=== PATIENT | male | born 1950 | race Caucasian/White ===

== ENCOUNTER 2017-05-29 15:14 | Emergency (ER) | payer MEDICARE, OTHER ==
[~2017-05-29] VITALS: Ht 188 cm; Wt 105.0 kg
[2017-05-29 15:16] VITALS: BP 137/83; PULSE 66; RESP 16; TEMP 98.6; O2SAT 97
[2017-05-29] MEDS ORDERED: TETANUS/DIPHTHERIA TOXOID ADULT 0.5 ML VIAL IM ONE (15:30)
--- NOTE | 2017-05-29 15:30 | PD ---
HPI Chief Complaint: Laceration/Skin Injury Time Seen by Provider: 15:25 Travel History International Travel<30 days: No Contact w/Intl Traveler<30days: No Traveled to known affect area: No History of Present Illness HPI 67-year-old male presents for evaluation a laceration to the dorsal aspect of his left foot. Patient was smashing tile when a piece flew on his foot. Sustained laceration. Patient states he was unable to stop it from bleeding so he came to the emergency department. He is not up-to-date on his tetanus vaccination. Reports mild pain at the site. It does not radiate anywhere. Denies any limitations range of motion alterations in sensation. He has no other symptoms to report. [facility] Past Medical History Medical History: Denies Significant Hx Social History Alcohol Use: No Tobacco Use: No Substance Use: No Allergies-Medications (Allergen,Severity, Reaction): Uncoded Allergies: ORAL CORTISONE (Allergy, Severe, RASH, 05/29/17) Review of Systems Except as stated in HPI: all other systems reviewed are Neg Physical Exam Narrative GENERAL: Well nourished male pt in no acute distress SKIN: Warm and dry.2.5 cm laceration to the dorsum of the proximal left foot. Bleeding moderately. HEAD: Normocephalic. EYES: No scleral icterus. No injection or drainage. NECK: Supple, trachea midline. No JVD or lymphadenopathy. CARDIOVASCULAR: Regular rate and rhythm without murmurs, gallops, or rubs. RESPIRATORY: Breath sounds equal bilaterally. No accessory muscle use. MUSCULOSKELETAL: No cyanosis, or edema. Pt has full flexion and extension of the L ankle and toes in the affected extremity. Cap refill WNL: Data Data Last Documented VS Vital Signs Date Time Temp Pulse Resp B/P (MAP) Pulse Ox O2 Delivery O2 Flow Rate FiO2 05/29/17 16:11 05/29/17 15:16 98.6 66 16 97 Room Air Orders Orders Foot, Limited (2vws) (05/29/17 ) Tetanus/Diphtheria Tox Adult (Tetanus/Di (05/29/17 15:30) MDM Medical Decision Making Medical Screen Exam Complete: Yes Emergency Medical Condition: Yes Medical Record Reviewed: Yes Differential Diagnosis laceration superficial vs deep vs abrasion vs avulsion Narrative Course 67-year-old male presents to the emergency department for evaluation to have a laceration to the dorsum of the left foot. Wound is cleansed and approximated without difficulty. The extremity remains neurovascularly intact. X-rays without acute bony normality. Patient is counseled on care and discharged home at this time. Procedures Procedure Narrative LACERATION LOCATION: Left foot LENGTH: 2.5 cm] NUMBER OF STITCHES/DAVID: 3 sutures REPAIR: The area of the laceration was prepped with Betadine and sterilely draped. The laceration was infiltrated with 1% lidocaine without epinephrine. The wound was copiously irrigated and explored without evidence of foreign body , tendon injury or neurovascular injury. The wound was closed using 4-0 Prolene. This was a single layer repair. A sterile dressing was applied. The patient was advised to keep the dressing clean and dry. Patient tolerated the procedure well. Diagnosis Primary Impression: Laceration of left foot Qualified Codes: S91.312A - Laceration without foreign body, left foot, initial encounter Referrals: Primary Care Physician Patient Instructions: Acute Wound Care (DC), General Instructions Additional Instructions: Keep the area clean and dry Follow-up with her primary care provider Return immediately to the emergency department with any acute worsening of symptoms Med/Other Pt SpecificInfo: No Change to Meds Disposition: 01 DISCHARGE HOME Condition: Stable Luciana Arguelles May 29, 2017 15:30
--- NOTE | 2017-05-29 15:51 | RADRPT ---
EXAM DATE/TIME: 05/29/2017 15:48 [place] COMPARISON: No previous studies available for comparison. INDICATIONS : Laceration to anterior foot, from shard of tile cut foot. MEDICAL HISTORY : None. SURGICAL HISTORY : None. ENCOUNTER: Initial ACUITY: 1 day PAIN SCORE: 0/10 LOCATION: Left foot FINDINGS: Two view examination of the left foot demonstrates no dislocation, or fracture. The calcaneus is int act. Bony mineralization is normal. Subtle soft tissue swelling overlying the dorsal midfoot. CONCLUSION: 1. No acute fracture or dislocation. No radiopaque foreign bodies. Odilon De La Garza MD on May 29, 2017 at 15:49 Board Certified Radiologist. This report was verified electronically.
== END 2017-05-29 16:10 | disposition home or self-care (01) ==
LOC: NEPK 15:14
DX: S91.312A Laceration without foreign body, left foot, initial encounter (principal); W20.8XXA Other cause of strike by thrown, projected or falling object, initial encounter; Y93.H3 Activity, building and construction; Z23 Encounter for immunization
CPT/HCPCS: 12001; 73620; 90471; 90714